=== PATIENT | female | born 1995 | race Caucasian/White ===

== ENCOUNTER 2016-12-17 16:21 | Emergency (ER) | payer BC, OTHER ==
[~2016-12-17] VITALS: Ht 172.7 cm; Wt 113.4 kg
--- NOTE | 2016-12-17 18:21 | ECGEPIP ---
Stationary ECG Study [facility] - ED Test Date: 2016-12-17 Pat Name: FATUMA TAVERAS Department: Room: - Gender: F Dietary Aide Cook: PB : 1995 Requested By: Britney Nunez Order Number: [id number] Reading MD: Britney Nunez Measurements Intervals [place] Rate: 56 P: 17 SC: 141 QRS: 64 QRSD: 90 T: 45 QT: 413 QTc: 401 Interpretive Statements SINUS BRADYCARDIA NO PRIOR FOR COMPARISON Electronically Signed On 12-17-2016 18:21:28 EDT by Britney Nunez
[2016-12-17 18:28] LABS: CONTROL LINE HCG INT CTR LINE PRESENT
[2016-12-17] MEDS ORDERED: ONDANSETRON 4 MG ORAL DISINTEGRATING TAB (S0181) PO ONE (18:30)
[2016-12-17] MEDS ORDERED: ISOVUE-370 76% 100ML VIAL (Q9967) As Ordered ONE (18:55)
[2016-12-17] MEDS ORDERED: NAPR500T PO (18:59)
[2016-12-17 19:18] VITALS: BP 136/87
--- NOTE | 2016-12-18 09:35 | REP ---
CHEST, ONE VIEW: HISTORY: Chest pain. The lungs are clear. The heart is normal in size. The pulmonary vasculature is normal in appearance. IMPRESSION: No acute disease. Signed by Phan Thomas MD 12/18/2016 09:37 A
== END 2016-12-17 19:20 | disposition home or self-care (01) ==
LOC: M ED 16:49
DX: R07.89 Other chest pain (principal)